=== PATIENT | female | born 1960 | race Caucasian/White ===

== ENCOUNTER 2016-07-05 16:34 | Inpatient (IN) | payer OTHER, MEDICARE ==
[~2016-07-05] VITALS: Ht 172.7 cm; Wt 150.0 kg
[2016-07-05 16:36] VITALS: BP 164/89; PULSE 90; RESP 24; TEMP 99.4; O2SAT 94
[2016-07-05] MEDS ORDERED: PERC10TA27 PO (18:48)
[2016-07-05] MEDS ORDERED: LORA-474 PO (18:48)
[2016-07-05] MEDS ORDERED: GABA100C4 PO (18:48)
--- NOTE | 2016-07-05 19:09 | PD ---
HPI Chief Complaint: Skin Problem Time Seen by Provider: 19:08 Travel History International Travel<30 days: No Contact w/Intl Traveler<30days: No Traveled to known affect area: No History of Present Illness HPI 56-year-old female into the emergency room with history of redness of her skin on her lower abdominal area, pelvic area and going down to the thighs. Patient says that she has had this for a few weeks but it had started to clear out and now it is coming back again since past 2-3 days. She's been having fever with chills. She was in [facility] emergency room yesterday where she was given a dose of antibiotic and was discharged. However patient says that the redness is spreading and there is a foul odor to it. It has been tender to touch. She is not a diabetic. However, she is morbidly obese. Vital signs are stable. Patient said her temperature at home was 101.5. PFSH Past Medical History Narrative Medical List of her past medical history as reviewed from the nursing note. Cancer: Yes (THYROID CANCER) Medical other: Yes (FILTERS IN CHEST, RT LEG DVT, LYMPHEDEMA) Neurologic: Yes (TRIGEMINAL NEUROLGIA) ?: Not Menopausal: Yes Past Surgical History Cholecystectomy: Yes Hysterectomy: Yes Other Surgery: Yes (CRAINOTOMY) Social History Alcohol Use: No Tobacco Use: Yes (1/2PPD) Substance Use: No Allergies-Medications (Allergen,Severity, Reaction): Coded Allergies: Morphine (Verified Allergy, Severe, Irritability/Anxiety, 07/05/16) Comments List of her allergies reviewed from the nursing note. Reported Meds & Prescriptions Reported Meds & Active Scripts Active Reported Percocet (Oxycodone-Acetaminophen) 10-325 mg Tab 1 Tab PO Q4H PRN Gabapentin 100 Mg Cap 200 Mg PO TID Ativan (Lorazepam) 1 Mg Tab 1 Mg PO Q8H PRN Narrative Medication List of her home medications reviewed from the nursing note. Review of Systems Except as stated in HPI: all other systems reviewed are Neg Physical Exam Narrative GENERAL: Awake, alert, morbidly obese, moderate distress SKIN: Warm and dry. Anterior abdominal wall at the lower half and into the skin fold going to the pelvic area and groin and upper third of the thigh has intensely red skin that is warm to touch and foul odor. It is tender to touch as well. No crepitus felt. HEAD: Atraumatic. Normocephalic. EYES: Pupils equal and round. No scleral icterus. No injection or drainage. ENT: No nasal bleeding or discharge. Mucous membranes pink and moist. NECK: Trachea midline. No JVD. CARDIOVASCULAR: Regular rate and rhythm. No murmur appreciated. RESPIRATORY: No accessory muscle use. Clear to auscultation. Breath sounds equal bilaterally. GASTROINTESTINAL: Abdomen soft, non-tender, nondistended. Hepatic and splenic margins not palpable. MUSCULOSKELETAL: No obvious deformities. No clubbing. No cyanosis. No edema. NEUROLOGICAL: Awake and alert. No obvious cranial nerve deficits. Motor grossly within normal limits. Normal speech. PSYCHIATRIC: Appropriate mood and affect; insight and judgment normal. Data Data Last Documented VS Vital Signs Date Time Temp Pulse Resp B/P Pulse Ox O2 Delivery O2 Flow Rate FiO2 07/05/16 22:00 98.8 88 18 149/74 98 Room Air Orders Complete Blood Count With Diff (07/05/16 19:45) Comprehensive Metabolic Panel (07/05/16 19:45) Lactic Acid Sepsis Protocol (07/05/16 19:45) Urinalysis - C+S If Indicated (07/05/16 19:45) Blood Culture (07/05/16 19:45) Blood Glucose (07/05/16 19:45) Ecg Monitoring (07/05/16 19:45) Iv Access Insert/Monitor (07/05/16 19:45) Oximetry (07/05/16 19:45) Oxygen Administration (07/05/16 19:45) Vancomycin Inj (Vancomycin Inj) (07/05/16 19:45) Piperacil-Tazo 4.5 Gm Premix (Zosyn 4.5 (07/05/16 19:45) Acetamin-Hydrocod 325-5 Mg (Morris 5-325 (07/05/16 20:15) Potassium Chloride Eff (K-Lyte Cl Eff) (07/05/16 22:30) Vancomycin Consult Pharmacy (Vancomycin (07/05/16 22:45) Cefepime Inj (Maxipime Inj) (07/06/16 09:00) Fluconazole 200 Mg Premix Bag (Diflucan (07/05/16 22:45) Admit To Inpatient (07/05/16 ) Vital Signs (Adult) Q4H (07/05/16 22:35) Activity Oob With Assistance (07/05/16 22:35) Stretcher Leveler Operator Helper / Telemetry .CONTINUOUS (07/05/16 22:35) Diet Regular Basic (07/06/16 Breakfast) Sodium Chloride 0.9% Flush (Ns Flush) (07/05/16 22:45) Sodium Chloride 0.9% Flush (Ns Flush) (07/06/16 09:00) Ondansetron Inj (Zofran Inj) (07/05/16 22:45) Bisacodyl Supp (Dulcolax Supp) (07/05/16 22:45) Admit Order (Ed Use Only) (07/05/16 22:38) Comprehensive Metabolic Panel (07/06/16 06:00) Complete Blood Count With Diff (07/06/16 06:00) Consult Wound / Ostomy Nurse (07/05/16 22:35) Acetaminophen (Tylenol) (07/05/16 22:45) Acetamin-Hydrocod 325-5 Mg (Morris 5-325 (07/05/16 22:45) Acetamin-Hydrocod 325-10 Mg (Morris 10-32 (07/05/16 22:45) Inpatient Certification (07/05/16 ) Gabapentin (Neurontin) (07/06/16 09:00) Lorazepam (Ativan) (07/05/16 22:45) Labs Laboratory Tests Test 07/05/16 07/05/16 19:45 19:52 White Blood Count 11.7 TH/MM3 Red Blood Count 4.54 MIL/MM3 Hemoglobin 11.4 GM/DL Hematocrit 35.8 % Mean Corpuscular Volume 78.9 FL Mean Corpuscular Hemoglobin 25.1 PG Mean Corpuscular Hemoglobin 31.9 % Concent Red Cell Distribution Width 17.7 % Platelet Count 283 TH/MM3 Mean Platelet Volume 8.5 FL Neutrophils (%) (Auto) 70.5 % Lymphocytes (%) (Auto) 18.7 % Monocytes (%) (Auto) 9.4 % Eosinophils (%) (Auto) 1.1 % Basophils (%) (Auto) 0.3 % Neutrophils # (Auto) 8.2 TH/MM3 Lymphocytes # (Auto) 2.2 TH/MM3 Monocytes # (Auto) 1.1 TH/MM3 Eosinophils # (Auto) 0.1 TH/MM3 Basophils # (Auto) 0.0 TH/MM3 CBC Comment DIFF FINAL Differential Comment Sodium Level 142 MEQ/L Potassium Level 3.2 MEQ/L Chloride Level 106 MEQ/L Carbon Dioxide Level 27.3 MEQ/L Anion Gap 9 MEQ/L Blood Urea Nitrogen 9 MG/DL Creatinine 0.80 MG/DL Estimat Glomerular Filtration 74 ML/MIN Rate Random Glucose 82 MG/DL Calcium Level 8.5 MG/DL Total Bilirubin 0.4 MG/DL Aspartate Amino Transf 12 U/L (AST/SGOT) Alanine Aminotransferase 15 U/L (ALT/SGPT) Alkaline Phosphatase 93 U/L Total Protein 7.9 GM/DL Albumin 3.1 GM/DL Lactic Acid Level 1.2 mmol/L MDM Medical Decision Making Medical Screen Exam Complete: Yes Emergency Medical Condition: Yes Medical Record Reviewed: Yes Differential Diagnosis Cellulitis, sepsis Narrative Course 10:27 PM all the blood test results are back. Patient does have some elevated WBC with left shift. Lactic acid is within normal limits. Her temperature went up to 100.3 in the ER. Patient was started on IV vancomycin. She will require admission for few more doses of IV antibiotic and the infection to clear up. Awaiting for the hospitalist to call back. Procedures EKG Prior to Arrival: No Sepsis Criteria Sepsis Criteria (SIRS+source): Infect source susp/known Diagnosis Primary Impression: Fever Qualified Code: R50.9 - Fever, unspecified fever cause Additional Impressions: Cellulitis Qualified Code: L03.311 - Cellulitis of abdominal wall SIRS (systemic inflammatory response syndrome) Admitting Information Admitting Physician Requests: Admit Zaida Mcdonough MD Jul 05, 2016 19:09 Admitting Physician Requests: Zaida Mayo MD Jul 05, 2016 19:09
[2016-07-05] MEDS ORDERED: VANCOMYCIN INJ 1,500 MG in SODIUM CHLORID 0.9% 500 ML INJ 500 ML IV ONE (19:45)
[2016-07-05] MEDS ORDERED: PIPERACIL-TAZO 4.5 GM PREMIX 100 ML IV ONE (19:45)
[2016-07-05 20:09] VITALS: BP 140/65; PULSE 81; RESP 18; TEMP 100.3; O2SAT 98
[2016-07-05 20:11] VITALS: RESP 18; O2SAT 98
[2016-07-05] MEDS ORDERED: ACETAMINOPHEN/HYDROcodone 325 MG/5 MG TAB PO ONE (20:15)
[2016-07-05 20:44] LABS: AUTOMATED NEUTROPHIL # 8.2 TH/MM3 (1.8-7.7); BASOPHIL % 0.3 % (0.0-2.0); EOSINOPHIL # 0.1 TH/MM3 (0-0.4); EOSINOPHIL % 1.1 % (0.0-4.0); HEMATOCRIT 35.8 % (35.0-46.0); HEMO FLAGS DIFF FINAL; LYMPH % 18.7 % (9.0-44.0); LYMPHOCYTE # 2.2 TH/MM3 (1.0-4.8); MEAN CELL VOLUME 78.9 FL (80.0-100.0); MEAN CORPUSCULAR HEMOGLOBIN 25.1 PG (27.0-34.0); MEAN CORPUSCULAR HGB CONC 31.9 % (32.0-36.0); MONO % 9.4 % (0.0-8.0); NEUT % 70.5 % (16.0-70.0); PLATELET COUNT 283 TH/MM3 (150-450); RED BLOOD COUNT 4.54 MIL/MM3 (4.00-5.30); RED CELL DISTRIBUTION WIDTH 17.7 % (11.6-17.2); WHITE BLOOD COUNT 11.7 TH/MM3 (4.0-11.0)
[2016-07-05 21:26] LABS: ANION GAP 9 MEQ/L (5-15); AST (GOT) 12 U/L (15-37); BICARBONATE 27.3 MEQ/L (21.0-32.0); BLOOD UREA NITROGEN 9 MG/DL (7-18); CHLORIDE 106 MEQ/L (98-107); GLOMERULAR FILTRATION RATE 74 ML/MIN (>89); POTASSIUM 3.2 MEQ/L (3.5-5.1); SODIUM (NA) 142 MEQ/L (136-145)
[2016-07-05 21:29] LABS: ALKALINE PHOSPHATASE 93 U/L (45-117); ALT (GPT) 15 U/L (10-53); TOTAL BILIRUBIN ADULT 0.4 MG/DL (0.2-1.0)
[2016-07-05 22:00] VITALS: BP 149/74; PULSE 88; RESP 18; TEMP 98.8; O2SAT 98
[2016-07-05] MEDS ORDERED: POTASSIUM CHLORIDE 25 MEQ EFFERVESCENT TAB PO ONE (22:30)
--- NOTE | 2016-07-05 22:38 | HHI.HP ---
HPI Service [facility] Primary Care Physician Non-Staff Admission Diagnosis cellulitis, SIRS Diagnoses: (1) SIRS (systemic inflammatory response syndrome) Diagnosis: Principal (2) Cellulitis Diagnosis: Principal (3) Hypokalemia Diagnosis: Principal (4) Morbid obesity with BMI of 50.0-59.9, adult Diagnosis: Principal (5) Anxiety Diagnosis: Principal Travel History International Travel<30 Days: No Contact w/Intl Traveler <30 Da: No Traveled to Known Affected Are: No History of Present Illness This is a 56-year-old female with a PMH of Trigeminal Neuralgia, Anxiety, Chronic Lymphedema, Morbid Obesity w/ BMI 50, GALA on CPAP and h/o DVT s/p IVC Filter who presented to the ER w/ complaints of diffuse abdominal skin infection. Per pt symptoms started "months" ago, has been using Triamcinolone cream and absorbent pads inside skin folds w/ significant improvement, however started to have worsening redness/pain approx 2-3 wks ago. Seen by PCP and referred to Safety Person who prescribed "some cream which only made it worse". In the meantime redness had spread to vaginal region and was told by Safety Person she would have to see Crystal Report Developer. Had appt w/ Crystal Report Developer for this week but doctor's office cancelled appt due to in family. Presented to [facility] yesterday for similar complaints and states "they just blew me off", states she was given antibiotic and was discharged home. Today, reports fever at home of 101.5 and worsening pain, at which time she came to the ER. On arrival, BP 1 6449, HR 90, O2 sat 94% on RA, Temp 100.3. WBC 11.7. Chemistry essentially unremarkable except for K+ 3.2. Lactic Acid 1.2. S/p Blood Cultures, Vanc/Zosyn in ER. Review of Systems Other ROS: 14 point review of systems otherwise negative. Past Family Social History Past Medical History PMH: Trigeminal Neuralgia, Anxiety, Chronic Lymphedema, Morbid Obesity w/ BMI 50, GALA on CPAP and h/o DVT s/p IVC Filter Past Surgical History PAST SURGICAL HISTORY: Cholecystectomy, Hysterectomy, Craniotomy Allergies: Coded Allergies: Morphine (Verified Allergy, Severe, Irritability/Anxiety, 07/05/16) Family History PAST FAMILY HISTORY: Reviewed. No h/o DM or CAD Social History PAST SOCIAL HISTORY: Negative for alcohol or drugs. Smokes 1/2ppd. Physical Exam Vital Signs Vital Signs Date Time Temp Pulse Resp B/P Pulse Ox O2 Delivery O2 Flow Rate FiO2 07/05/16 20:11 18 98 Room Air 07/05/16 20:09 100.3 81 18 140/65 98 Room Air 07/05/16 18:37 84 18 07/05/16 16:36 99.4 90 24 164/89 94 Room Air Physical Exam PE: GENERAL: Middle-aged morbidly obese white female in no acute distress, sitting up in bed. HEENT: PERRLA, EOMI. No scleral icterus or conjunctival pallor. No lid lag or facial droop. CARDIOVASCULAR: Regular rate and rhythm. No obvious murmurs to auscultation. No chest tenderness to palpation. RESPIRATORY: No obvious rhonchi or wheezing. Clear to auscultation. Breath sounds equal bilaterally. GASTROINTESTINAL: Abdomen obese, soft, abdomen w/ significant induration, beefy red skin, warm to touch, +tenderness, foul-smelling MUSCULOSKELETAL: Extremities without clubbing, cyanosis. Chronic lymphedema. No obvious deformities. NEUROLOGICAL: Awake, alert and oriented x4. No focal neurologic deficits. Moving both upper and lower extremities spontaneously. Laboratory Laboratory Tests Test 07/05/16 07/05/16 19:45 19:52 White Blood Count 11.7 Red Blood Count 4.54 Hemoglobin 11.4 Hematocrit 35.8 Mean Corpuscular Volume 78.9 Mean Corpuscular Hemoglobin 25.1 Mean Corpuscular Hemoglobin 31.9 Concent Red Cell Distribution Width 17.7 Platelet Count 283 Mean Platelet Volume 8.5 Neutrophils (%) (Auto) 70.5 Lymphocytes (%) (Auto) 18.7 Monocytes (%) (Auto) 9.4 Eosinophils (%) (Auto) 1.1 Basophils (%) (Auto) 0.3 Neutrophils # (Auto) 8.2 Lymphocytes # (Auto) 2.2 Monocytes # (Auto) 1.1 Eosinophils # (Auto) 0.1 Basophils # (Auto) 0.0 CBC Comment DIFF FINAL Differential Comment Sodium Level 142 Potassium Level 3.2 Chloride Level 106 Carbon Dioxide Level 27.3 Anion Gap 9 Blood Urea Nitrogen 9 Creatinine 0.80 Estimat Glomerular Filtration 74 Rate Random Glucose 82 Calcium Level 8.5 Total Bilirubin 0.4 Aspartate Amino Transf 12 (AST/SGOT) Alanine Aminotransferase 15 (ALT/SGPT) Alkaline Phosphatase 93 Total Protein 7.9 Albumin 3.1 Lactic Acid Level 1.2 Date/Time Procedure Status Source Growth 07/05/16 19:50 Aerobic Blood Culture Received Blood Peripheral Pending 07/05/16 19:50 Anaerobic Blood Culture Received Blood Peripheral Pending Result Diagram: 07/05/16194407/05/161944 Assessment and Plan Problem List: (1) SIRS (systemic inflammatory response syndrome) ICD Code: R65.10 Status: Acute (2) Cellulitis ICD Code: L03.90 Status: Acute (3) Hypokalemia ICD Code: E87.6 Status: Acute (4) Morbid obesity with BMI of 50.0-59.9, adult ICD Code: E66.01 Status: Acute (5) Anxiety ICD Code: F41.9 Status: Acute Assessment and Plan A/P: 1. SIRS: Temp 100.3, 101.5 at home, HR 90, WBC 11.7, Lactic Acid normal. Source-diffuse abdominal [place] w/ superimposed bacterial infection. S/p Blood Cultures, Vanc/Zosyn in ER. Follow up cultures, continue IV Abx. 2. Cellulitis: Diffuse. [place] infection w/ superimposed bacterial infection , continue w/ IV Vanc/Zosyn, add Diflucan. Consult Wound Management for further recommendations. Pt prone to recurrent infections in light of morbid obesity and limited mobility as primarily wheelchair bound. 3. Hypokalemia: K+ 3.2 s/p replacement. Will recheck and replace as needed. 4. Morbid Obesity: BMI 50. 5. DVT Prophylaxis: Heparin sq 6. Social work for d/c planning as needed. 7. Case discussed w/ ER physician at length. Physician Certification 2 Midnight Certification Type: Admission for Inpatient Services Order for Inpatient Services The services are ordered in accordance with Medicare regulations or non- Medicare payer requirements, as applicable. In the case of services not specified as inpatient-only, they are appropriately provided as inpatient services in accordance with the 2-midnight benchmark. Estimated LOS (days): 2 days is the estimated time the patient will need to remain in the hospital, assuming treatment plan goals are met and no additional complications. Post-Hospital Plan: Not yet determined Problem Qualifiers (1) Cellulitis: Qualified Code: L03.311 - Cellulitis of abdominal wall Radha Oliveira MD Jul 05, 2016 22:38
[2016-07-05] MEDS ORDERED: ONDANSETRON HCL 4 MG/2 ML VIAL IVP PRN (22:45)
[2016-07-05] MEDS ORDERED: ACETAMINOPHEN 325 MG TAB PO PRN (22:45)
[2016-07-05] MEDS ORDERED: SODIUM CHLORIDE 0.9% FLUSH 5 ML FLUSH FLUSH PRN (22:45)
[2016-07-05] MEDS ORDERED: BISACODYL 10 MG SUPP PR PRN (22:45)
[2016-07-05] MEDS ORDERED: FLUCONAZOLE 200 MG PREMIX BAG 100 ML IV ONE (22:45)
[2016-07-05] MEDS ORDERED: ACETAMINOPHEN/HYDROcodone 325 MG/5 MG TAB PO PRN (22:45)
[2016-07-05] MEDS ORDERED: Vancomycin Consult Pharmacy 1 EA OTHER SCH (22:45)
[2016-07-06] VITALS (8 sets, daily range): BP systolic 135–160; BP diastolic 68–78; PULSE 72–86; RESP 18–20; TEMP 98–99.3; O2SAT 95–97
[2016-07-06] MEDS ORDERED: VANCOMYCIN 1,000 MG/NS 250 ML IV SCH ×2
[2016-07-06] MEDS ORDERED: GABAPENTIN 100 MG CAP PO ONE (00:15)
[2016-07-06] MEDS: LORazepam 1 MG TAB PO PRN (04:07)
[2016-07-06 04:25] LABS: AUTOMATED NEUTROPHIL # 6.7 TH/MM3 (1.8-7.7); BASOPHIL % 0.4 % (0.0-2.0); EOSINOPHIL # 0.1 TH/MM3 (0-0.4); EOSINOPHIL % 1.6 % (0.0-4.0); HEMATOCRIT 33.8 % (35.0-46.0); HEMO FLAGS DIFF FINAL; LYMPH % 19.3 % (9.0-44.0); LYMPHOCYTE # 1.9 TH/MM3 (1.0-4.8); MEAN CELL VOLUME 78.7 FL (80.0-100.0); MEAN CORPUSCULAR HEMOGLOBIN 25.7 PG (27.0-34.0); MEAN CORPUSCULAR HGB CONC 32.6 % (32.0-36.0); MONO % 8.5 % (0.0-8.0); NEUT % 70.2 % (16.0-70.0); PLATELET COUNT 264 TH/MM3 (150-450); RED BLOOD COUNT 4.29 MIL/MM3 (4.00-5.30); RED CELL DISTRIBUTION WIDTH 17.2 % (11.6-17.2); WHITE BLOOD COUNT 9.6 TH/MM3 (4.0-11.0)
[2016-07-06 04:36] LABS: ANION GAP 8 MEQ/L (5-15); AST (GOT) 15 U/L (15-37); BICARBONATE 25.2 MEQ/L (21.0-32.0); BLOOD UREA NITROGEN 9 MG/DL (7-18); CHLORIDE 110 MEQ/L (98-107); GLOMERULAR FILTRATION RATE 79 ML/MIN (>89); POTASSIUM 3.3 MEQ/L (3.5-5.1); SODIUM (NA) 143 MEQ/L (136-145)
[2016-07-06 04:39] LABS: ALKALINE PHOSPHATASE 82 U/L (45-117); ALT (GPT) 15 U/L (10-53); TOTAL BILIRUBIN ADULT 0.5 MG/DL (0.2-1.0)
[2016-07-06] MEDS: ACETAMINOPHEN/HYDROcodone 325 MG/10 MG TAB PO PRN ×4 (07:29→21:18)
[2016-07-06] MEDS: SODIUM CHLORIDE 0.9% FLUSH 5 ML FLUSH FLUSH SCH ×2 (09:00→21:19)
[2016-07-06] MEDS: GABAPENTIN 100 MG CAP PO SCH ×3 (09:33→18:23)
[2016-07-06] MEDS: HEPARIN SODIUM - SQ 10,000 UNITS/ML VIAL SQ SCH ×2 (09:33→21:19)
[2016-07-06] MEDS: CEFEPIME INJ 1,000 MG in SODIUM CHLORIDE 0.9% INJ 100 ML IV SCH ×2 (09:34→21:19)
--- NOTE | 2016-07-06 10:27 | HHI.PR ---
Subjective Remarks The patient says she has been dealing with these infections for the past 6 months. She said they entirely went away about 3 months ago after she had a course of antibiotics and antifungals but the infection did reappear. She said she is generally in a wheelchair. She says she has been trying to achieve weight loss. Discussed with nursing. Objective Vitals Vital Signs Date Time Temp Pulse Resp B/P Pulse Ox O2 Delivery O2 Flow Rate FiO2 07/06/16 08:54 99.2 72 18 160/75 95 07/06/16 05:00 81 18 135/68 95 Room Air 07/06/16 01:00 86 18 144/71 97 Room Air 07/05/16 22:00 98.8 88 18 149/74 98 Room Air 07/05/16 20:11 18 98 Room Air 07/05/16 20:09 100.3 81 18 140/65 98 Room Air 07/05/16 18:37 84 18 07/05/16 16:36 99.4 90 24 164/89 94 Room Air Result Diagram: 07/06/16 0340 07/06/16 0340 Objective Remarks GENERAL: Morbidly obese female in no acute distress. HEENT: PERRLA, EOMI. No scleral icterus or conjunctival pallor. No lid lag or facial droop. CARDIOVASCULAR: Regular rate and rhythm. No obvious murmurs to auscultation. No chest tenderness to palpation. RESPIRATORY: No obvious rhonchi or wheezing. Clear to auscultation. Breath sounds equal bilaterally. GASTROINTESTINAL: Abdomen obese, soft. Lower abdomen and groin w/ significant induration, erythema, +tenderness, foul-smelling. MUSCULOSKELETAL: Extremities without clubbing, cyanosis. Chronic lymphedema, worse on right leg. No obvious deformities. NEUROLOGICAL: Awake, alert and oriented x4. No focal neurologic deficits. Moving both upper and lower extremities spontaneously. PSYCH: Mood and affect appropriate. Medications and IVs Current Medications Medications (Trade) Dose Ordered Sig/Sanchez Route Start Time Stop Time Status Last Admin Pharmacy Profile Note 0 ml @ 0 mls/hr UNSCH OTHER 07/05/16 22:45 (Maxipime Inj/NS Inj) 100 ml @ 200 mls/hr Q12H IV 07/06/16 09:00 07/06/16 09:34 (NS Flush) 2 ml UNSCH PRN FLUSH 07/05/16 22:45 (NS Flush) 2 ml BID FLUSH 07/06/16 09:00 07/06/16 09:00 (Zofran Inj) 4 mg Q6H PRN IVP 07/05/16 22:45 (Dulcolax Supp) [address] 07/05/16 22:45 (Tylenol) 650 mg Q6H PRN PO 07/05/16 22:45 ([place] 5-325 Mg) 1 tab Q4H PRN PO 07/05/16 22:45 07/06/16 04:08 ([place] 10-325 Mg) 1 tab Q4H PRN PO 07/05/16 22:45 07/06/16 07:29 (Neurontin) 200 mg TID PO 07/06/16 09:00 07/06/16 09:33 Lorazepam 1 mg 1 mg Q8H PRN PO 07/05/16 22:45 07/06/16 04:07 (Diflucan 100 Mg Premix Bag) 50 ml @ 50 mls/hr Q24H IV 07/06/16 21:00 Heparin Sodium (Porcine) 5000 units 5,000 units Q12HR SQ 07/06/16 09:00 07/06/16 09:33 (Vancomycin Inj/ NS 500 ml Inj) 517.5 ml @ 258.75 mls/ hr Q12H IV 07/06/16 12:00 Miscellaneous Information SPECIFIC LAB TO BE TOLU... ONCE ONCE XX 07/07/16 11:45 07/07/16 11:46 (Colace) 100 mg BID PO 07/06/16 11:00 (Senokot) 17.2 mg DAILY PO 07/07/16 09:00 (Vasotec Inj) 1.25 mg Q6H PRN IV PUSH 07/06/16 10:30 (Dilaudid Pf Inj) 0.5 mg Q4H PRN IV PUSH 07/06/16 11:00 UNV A/P Problem List: (1) SIRS (systemic inflammatory response syndrome) ICD Code: R65.10 Status: Acute (2) Cellulitis ICD Code: L03.90 Status: Acute (3) Hypokalemia ICD Code: E87.6 Status: Acute (4) Morbid obesity with BMI of 50.0-59.9, adult ICD Code: E66.01 Status: Acute (5) Anxiety ICD Code: F41.9 Status: Acute Assessment and Plan SIRS/ Cellulitis/ hidradenitis supparativa Diffuse abdominal sylvain w/ superimposed bacterial infection. Consistent with hidradenitis supparativa. S/p Blood Cultures, Vanc/Zosyn in ER. Pt prone to recurrent infections in light of morbid obesity and limited mobility as primarily wheelchair bound. - Follow up cultures. And wound bacterial and fungal cultures. - continue IV Abx and Diflucan. - Consult wound management for further recommendations. - pain control with a bowel regimen. Hypokalemia K+ 3.2 on admission. - Will recheck and replace as needed. Morbid Obesity BMI 50. - inspector elevators consult requested. - weight loss will assist with preventing recurrent infections. HTN Blood pressure likely exacerbated by pain. - Pain control. - Vasotec as needed. DVT Prophylaxis: Heparin sq Discharge Planning Awaiting clinical improvement. Problem Qualifiers (1) Cellulitis: Qualified Code: L03.311 - Cellulitis of abdominal wall Mario Alberto Oliveira DO Jul 06, 2016 10:27
[2016-07-06] MEDS ORDERED: ENALAPRILAT 1.25 MG/ML VIAL IV PUSH PRN (10:30)
[2016-07-06] MEDS ORDERED: POTASSIUM CHLORIDE 25 MEQ EFFERVESCENT TAB PO ONE (10:30)
[2016-07-06] MEDS: DOCUSATE SODIUM 100 MG CAP PO SCH ×2 (11:00→21:00)
[2016-07-06] MEDS: VANCOMYCIN INJ 1,750 MG in SODIUM CHLORID 0.9% 500 ML INJ 500 ML IV SCH (13:28)
[2016-07-06] MEDS: HYDROmorphone HCL PF 1 MG/ML VIAL IV PUSH PRN ×3 (13:28→23:03)
[2016-07-06] MEDS: FLUCONAZOLE 100 MG PREMIX BAG 50 ML IV SCH (22:06)
[2016-07-07] VITALS (9 sets, daily range): BP systolic 112–179; BP diastolic 59–85; PULSE 65–82; RESP 18–20; TEMP 98–99.7; O2SAT 94–98
[2016-07-07] MEDS: VANCOMYCIN INJ 1,750 MG in SODIUM CHLORID 0.9% 500 ML INJ 500 ML IV SCH ×2 (01:08→12:30)
[2016-07-07] MEDS: HYDROmorphone HCL PF 1 MG/ML VIAL IV PUSH PRN ×4 (02:57→23:06)
[2016-07-07] MEDS: LORazepam 1 MG TAB PO PRN (04:23)
[2016-07-07] MEDS: ACETAMINOPHEN/HYDROcodone 325 MG/10 MG TAB PO PRN ×4 (05:34→21:39)
[2016-07-07 05:36] LABS: BICARBONATE 25.7 MEQ/L (21.0-32.0); MAGNESIUM 2.3 MG/DL (1.5-2.5); POTASSIUM 3.6 MEQ/L (3.5-5.1)
[2016-07-07] MEDS ORDERED: POTASSIUM CHLORIDE 25 MEQ EFFERVESCENT TAB PO ONE (08:00)
[2016-07-07] MEDS: SODIUM CHLORIDE 0.9% FLUSH 5 ML FLUSH FLUSH SCH ×2 (08:38→21:38)
[2016-07-07] MEDS: CEFEPIME INJ 1,000 MG in SODIUM CHLORIDE 0.9% INJ 100 ML IV SCH ×2 (08:39→21:37)
[2016-07-07] MEDS: HEPARIN SODIUM - SQ 10,000 UNITS/ML VIAL SQ SCH ×2 (08:39→23:05)
[2016-07-07] MEDS: GABAPENTIN 100 MG CAP PO SCH ×3 (08:39→16:23)
[2016-07-07] MEDS: SENNOSIDES 8.6 MG TAB PO SCH (08:40)
[2016-07-07] MEDS: DOCUSATE SODIUM 100 MG CAP PO SCH ×2 (08:40→21:00)
[2016-07-07] MEDS ORDERED: PHARMACY ORDERED LAB XX ONE (11:45)
--- NOTE | 2016-07-07 15:00 | HHI.PR ---
Subjective Remarks The patient says she has a lot of pain in her lower abdominal area. She said she wished the pain medications would come on time. The patient's daughter was on the phone and I discussed the patient's condition with her. The patient was hoping to go home soon. Objective Vitals Vital Signs Date Time Temp Pulse Resp B/P Pulse Ox O2 Delivery O2 Flow Rate FiO2 07/07/16 12:46 14 07/07/16 11:33 99.0 74 20 142/65 94 07/07/16 09:10 96 21 07/07/16 08:30 67 07/07/16 07:33 98.1 76 18 112/59 94 07/07/16 04:14 98.3 65 20 163/76 98 07/07/16 00:27 98.0 68 20 140/75 96 07/06/16 20:19 96 07/06/16 20:00 83 07/06/16 19:16 98.0 80 20 135/69 96 07/06/16 15:24 99.2 73 20 135/70 97 I/O 07/06/16 07/06/16 07/06/16 07/07/16 07/07/16 07/07/16 07:00 15:00 23:00 07:00 15:00 23:00 Intake Total 600 ml Balance 600 ml Intake IV Total 600 ml # Voids 1 Result Diagram: 07/06/16 0340 07/07/16 0503 Objective Remarks GENERAL: Morbidly obese female in no acute distress. HEENT: PERRLA, EOMI. No scleral icterus or conjunctival pallor. No lid lag or facial droop. CARDIOVASCULAR: Regular rate and rhythm. No obvious murmurs to auscultation. No chest tenderness to palpation. RESPIRATORY: No obvious rhonchi or wheezing. Clear to auscultation. Breath sounds equal bilaterally. GASTROINTESTINAL: Abdomen obese, soft. Lower abdomen and groin w/ significant induration, erythema, +tenderness, foul-smelling. MUSCULOSKELETAL: Extremities without clubbing, cyanosis. Chronic lymphedema, worse on right leg. No obvious deformities. NEUROLOGICAL: Awake, alert and oriented x4. No focal neurologic deficits. Moving both upper and lower extremities spontaneously. PSYCH: Mood and affect appropriate. Medications and IVs Current Medications Medications (Trade) Dose Ordered Sig/Sanchez Route Start Time Stop Time Status Last Admin Pharmacy Profile Note 0 ml @ 0 mls/hr UNSCH OTHER 07/05/16 22:45 (Maxipime Inj/NS Inj) 100 ml @ 200 mls/hr Q12H IV 07/06/16 09:00 07/07/16 08:39 (NS Flush) 2 ml UNSCH PRN FLUSH 07/05/16 22:45 (NS Flush) 2 ml BID FLUSH 07/06/16 09:00 07/07/16 08:38 (Zofran Inj) 4 mg Q6H PRN IVP 07/05/16 22:45 (Dulcolax Supp) 10 mg DAILY PRN OR 07/05/16 22:45 (Tylenol) 650 mg Q6H PRN PO 07/05/16 22:45 ([place] 5-325 Mg) 1 tab Q4H PRN PO 07/05/16 22:45 07/06/16 04:08 ([place] 10-325 Mg) 1 tab Q4H PRN PO 07/05/16 22:45 07/07/16 10:48 (Neurontin) 200 mg TID PO 07/06/16 09:00 07/07/16 13:00 Lorazepam 1 mg 1 mg Q8H PRN PO 07/05/16 22:45 07/07/16 04:23 (Diflucan 100 Mg Premix Bag) 50 ml @ 50 mls/hr Q24H IV 07/06/16 21:00 07/06/16 22:06 Heparin Sodium (Porcine) 5000 units 5,000 units Q12HR SQ 07/06/16 09:00 07/07/16 08:39 (Vancomycin Inj/ NS 500 ml Inj) 517.5 ml @ 258.75 mls/ hr Q12H IV 07/06/16 12:00 07/07/16 12:30 (Colace) 100 mg BID PO 07/06/16 11:00 (Senokot) 17.2 mg DAILY PO 07/07/16 09:00 (Vasotec Inj) 1.25 mg Q6H PRN IV PUSH 07/06/16 10:30 (Dilaudid Pf Inj) 0.5 mg Q4H PRN IV PUSH 07/06/16 11:00 07/07/16 07:24 A/P Problem List: (1) SIRS (systemic inflammatory response syndrome) ICD Code: R65.10 Status: Acute (2) Cellulitis ICD Code: L03.90 Status: Acute (3) Hypokalemia ICD Code: E87.6 Status: Acute (4) Morbid obesity with BMI of 50.0-59.9, adult ICD Code: E66.01 Status: Acute (5) Anxiety ICD Code: F41.9 Status: Acute Assessment and Plan SIRS/ Cellulitis/ hidradenitis supparativa Diffuse abdominal sylvain w/ superimposed bacterial infection. Consistent with hidradenitis supparativa. S/p Blood Cultures, Vanc/Zosyn in ER. Pt prone to recurrent infections in light of morbid obesity and limited mobility as primarily wheelchair bound. - Follow up cultures. Add wound bacterial and fungal cultures. Wound culture with normal skin adriana. Fungal culture still pending. - continue vancomycin, Zosyn and Diflucan. - Consult wound management for further recommendations. - pain control with a bowel regimen. - Recommend weight loss. Hypokalemia K+ 3.2 on admission. - Will recheck and replace as needed. KCl given 2/5. Morbid Obesity BMI 50. - billiard table mechanic consult requested. - weight loss will assist with preventing recurrent infections. HTN Blood pressure likely exacerbated by pain. - Pain control. - Vasotec as needed. DVT Prophylaxis: Heparin sq Discharge Planning Anticipate discharge home in 1-2 days. Problem Qualifiers (1) Cellulitis: Qualified Code: L03.311 - Cellulitis of abdominal wall Mario Alberto Oliveira DO Jul 07, 2016 14:59
[2016-07-07] MEDS: FLUCONAZOLE 100 MG PREMIX BAG 50 ML IV SCH (23:05)
[2016-07-08] MEDS: VANCOMYCIN INJ 1,750 MG in SODIUM CHLORID 0.9% 500 ML INJ 500 ML IV SCH ×2 (00:46→12:24)
[2016-07-08] MEDS: LORazepam 1 MG TAB PO PRN (00:50)
[2016-07-08 00:57] VITALS: BP 159/74; PULSE 64; RESP 21; TEMP 98.7; O2SAT 98
[2016-07-08 03:31] VITALS: BP 168/79; PULSE 66; RESP 21; TEMP 98.7; O2SAT 98
[2016-07-08] MEDS: HYDROmorphone HCL PF 1 MG/ML VIAL IV PUSH PRN ×2 (04:25→13:05)
[2016-07-08 07:15] VITALS: PULSE 69
[2016-07-08] MEDS: DOCUSATE SODIUM 100 MG CAP PO SCH (09:00)
[2016-07-08] MEDS: SENNOSIDES 8.6 MG TAB PO SCH (09:00)
[2016-07-08] MEDS: SODIUM CHLORIDE 0.9% FLUSH 5 ML FLUSH FLUSH SCH (09:31)
[2016-07-08] MEDS: CEFEPIME INJ 1,000 MG in SODIUM CHLORIDE 0.9% INJ 100 ML IV SCH (09:31)
[2016-07-08] MEDS: GABAPENTIN 100 MG CAP PO SCH ×3 (09:32→17:42)
[2016-07-08] MEDS: HEPARIN SODIUM - SQ 10,000 UNITS/ML VIAL SQ SCH (09:33)
[2016-07-08] MEDS: ACETAMINOPHEN/HYDROcodone 325 MG/10 MG TAB PO PRN ×2 (09:36→17:43)
[2016-07-08 11:26] VITALS: BP 170/58; PULSE 66; RESP 18; TEMP 99.5; O2SAT 98
--- NOTE | 2016-07-08 15:01 | HHI.PR ---
Subjective Remarks Follow up for cellulitis. The patient denies any fevers or chills overnight. She has lower abdominal pain at the site of the rash however she states it is improving as she can now sit on this area without significant discomfort. She had 1 episode of diarrhea today. Denies any nausea/vomiting. She has no other medical complaints at this time. She really wants to go home, she takes care of her elderly mother. Objective Vitals Vital Signs Date Time Temp Pulse Resp B/P Pulse Ox O2 Delivery O2 Flow Rate FiO2 07/08/16 11:26 99.5 66 18 170/58 98 07/08/16 03:31 98.7 66 21 168/79 98 07/08/16 00:57 98.7 64 21 159/74 98 07/07/16 20:00 68 07/07/16 19:29 98.7 82 18 122/60 97 07/07/16 15:22 99.7 65 20 179/85 97 Result Diagram: 07/06/16 0340 07/07/16 0503 Imaging Objective Remarks GENERAL: Well-nourished, well-developed morbidly obese female patient in [facility]. SKIN: Warm and dry. No rash. HEAD: Normocephalic. Atraumatic. NECK: Supple. Trachea midline. CARDIOVASCULAR: Regular rate and rhythm. S1, S2 noted. No murmur appreciated. RESPIRATORY: No accessory muscle use. Clear to auscultation. Breath sounds equal bilaterally. GASTROINTESTINAL: Abdomen soft, non-tender, nondistended. Normoactive bowel sounds x4. Lower abdomen and groin w/ significant induration, mild erythema, + tenderness, foul-smelling. MUSCULOSKELETAL: No obvious deformities. Extremities without clubbing, cyanosis , or edema. NEUROLOGICAL: Awake and alert. No obvious cranial nerve deficits. Motor grossly within normal limits. Normal speech. PSYCHIATRIC: Appropriate mood and affect; insight and judgment normal. Medications and IVs Current Medications Medications (Trade) Dose Ordered Sig/Sanchez Route Start Time Stop Time Status Last Admin Pharmacy Profile Note 0 ml @ 0 mls/hr UNSCH OTHER 07/05/16 22:45 (Maxipime Inj/NS Inj) 100 ml @ 200 mls/hr Q12H IV 07/06/16 09:00 07/08/16 09:31 (NS Flush) 2 ml UNSCH PRN FLUSH 07/05/16 22:45 07/08/16 13:05 (NS Flush) 2 ml BID FLUSH 07/06/16 09:00 07/08/16 09:31 (Zofran Inj) 4 mg Q6H PRN IVP 07/05/16 22:45 (Dulcolax Supp) 10 mg DAILY PRN WV 07/05/16 22:45 (Tylenol) 650 mg Q6H PRN PO 07/05/16 22:45 (Warren 5-325 Mg) 1 tab Q4H PRN PO 07/05/16 22:45 07/06/16 04:08 (Warren 10-325 Mg) 1 tab Q4H PRN PO 07/05/16 22:45 07/08/16 09:36 (Neurontin) 200 mg TID PO 07/06/16 09:00 07/08/16 13:00 Lorazepam 1 mg 1 mg Q8H PRN PO 07/05/16 22:45 07/08/16 00:50 (Diflucan 100 Mg Premix Bag) 50 ml @ 50 mls/hr Q24H IV 07/06/16 21:00 07/07/16 23:05 Heparin Sodium (Porcine) 5000 units 5,000 units Q12HR SQ 07/06/16 09:00 07/08/16 09:33 (Vancomycin Inj/ NS 500 ml Inj) 517.5 ml @ 258.75 mls/ hr Q12H IV 07/06/16 12:00 07/08/16 12:24 (Colace) 100 mg BID PO 07/06/16 11:00 (Senokot) 17.2 mg DAILY PO 07/07/16 09:00 (Vasotec Inj) 1.25 mg Q6H PRN IV PUSH 07/06/16 10:30 (Dilaudid Pf Inj) 0.5 mg Q4H PRN IV PUSH 07/06/16 11:00 07/08/16 13:05 Urinary Catheter: No Vascular Central Line Catheter: No A/P Problem List: (1) SIRS (systemic inflammatory response syndrome) ICD Code: R65.10 Status: Acute (2) Cellulitis ICD Code: L03.90 Status: Acute (3) Hypokalemia ICD Code: E87.6 Status: Acute (4) Morbid obesity with BMI of 50.0-59.9, adult ICD Code: E66.01 Status: Acute (5) Anxiety ICD Code: F41.9 Status: Acute Assessment and Plan 56-year-old female with a PMH of Trigeminal Neuralgia, Anxiety, Chronic Lymphedema, Morbid Obesity w/ BMI 50, GALA on CPAP and h/o DVT s/p IVC Filter who presented to the ER w/ complaints of diffuse abdominal skin infection. SIRS/ Cellulitis/ hidradenitis suppurativa: Diffuse abdominal sylvain w/ superimposed bacterial infection. Consistent with hidradenitis supparativa. S/ p Blood Cultures, Vanc/Zosyn in ER. Pt prone to recurrent infections in light of morbid obesity and limited mobility as primarily wheelchair bound. - Blood cultures with NGTD x3days. - Wound culture with heavy growth of normal skin adriana, awaiting fungal culture - Leukocytosis initially with WBC 11.7K, now improved to 9.6K. Follow up cultures. - given IV vancomycin, cefepime however with negative wound cultures, will transition to po Bactrim at discharge. - given IV fluconazole, will give po diflucan at discharge. - Consult wound management, states wound looks fungal, recommends adding nystatin powder - pain control with a bowel regimen. - Recommend weight loss. - SIRS resolved, patient's wounds improving with above treatment, stable for discharge - will arrange [facility] RN for wound care Hypokalemia: K+ 3.2 on admission. - KCl given on 07/07, repeat K 3.6, resolved. Morbid Obesity: BMI 50. 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 HTN: Blood pressure likely exacerbated by pain. - Pain control. - Vasotec as needed. DVT Prophylaxis: Heparin sq Written by Angelique Munson, acting as scribe for Dr. Perez on 07/08/16 at 15:01. The documentation accurately reflects the work performed [id number] by me Dr. Perez on 07/08/16 at 15:01. Discharge Planning See discharge summary. Problem Qualifiers (1) Cellulitis: Qualified Code: L03.311 - Cellulitis of abdominal wall Angelique Munson PA-C Jul 08, 2016 15:01 Mary Perez MD Jul 09, 2016 17:41
--- NOTE | 2016-07-08 15:38 | HHI.FF ---
Face to Face Verification Diagnosis: (1) Hidradenitis suppurativa (2) Morbid obesity with BMI of 50.0-59.9, adult (3) Cellulitis (4) GALA (obstructive sleep apnea) (5) Anxiety Physical Therapy Order: Evaluate and Treat, Improve ambulation, Strength and gait training Home Health Nursing Order: Medical education Signs/symptoms of disease process Wound care and dressing changes (Apply nystatin powder to abdominal fold and bilateral groin. Apply warm compresses to any area with drainage. ) Nursing assessment with vital signs I have seen patient Anya Hall on 07/08/16. My clinical findings support the need for the requested home health care services because: Ltd mobility - disease progression Deconditioned w/ increased weakness Limited ability to care for self High risk of falls Infection w/ risk of complications I certify that my clinical findings support that this patient is homebound because: Unsteady gait/balance Unsafe to leave home unassisted Unable to use public transportation Angelique Munson PA-C Jul 08, 2016 15:38 Mary Perez MD Jul 09, 2016 17:41
[2016-07-08] MEDS ORDERED: BACT800T5 PO (15:41)
[2016-07-08] MEDS ORDERED: NYST10007 TOPICAL (15:41)
[2016-07-08] MEDS ORDERED: DIFL100T PO (15:41)
[2016-07-08] MEDS ORDERED: PERC10TA27 PO (15:43)
--- NOTE | 2016-07-08 17:08 | HHI.DS ---
cc: Dr. Sixto Mora Discharge Summary Admission Date Jul 05, 2016 at 22:42 Discharge Date: Jul 08, 2016 Admitting Diagnosis cellulitis, SIRS (1) Hidradenitis suppurativa ICD Code: L73.2 Diagnosis: Principal (2) Cellulitis ICD Code: L03.90 Diagnosis: Principal (3) SIRS (systemic inflammatory response syndrome) ICD Code: R65.10 Diagnosis: Principal (4) Hypokalemia ICD Code: E87.6 Diagnosis: Secondary (5) Morbid obesity with BMI of 50.0-59.9, adult ICD Code: E66.01 Diagnosis: Secondary (6) Anxiety ICD Code: F41.9 Diagnosis: Secondary Procedures None. Brief History - From Admission This is a 56-year-old female with a PMH of Trigeminal Neuralgia, Anxiety, Chronic Lymphedema, Morbid Obesity w/ BMI 50, GALA on CPAP and h/o DVT s/p IVC Filter who presented to the ER w/ complaints of diffuse abdominal skin infection. Per pt symptoms started "months" ago, has been using Triamcinolone cream and absorbent pads inside skin folds w/ significant improvement, however started to have worsening redness/pain approx 2-3 wks ago. Seen by PCP and referred to Sound Effects Supervisor who prescribed "some cream which only made it worse". In the meantime redness had spread to vaginal region and was told by Sound Effects Supervisor she would have to see Bulk Plant Operator. Had appt w/ Bulk Plant Operator for this week but doctor's office cancelled appt due to in family. Presented to [facility] yesterday for similar complaints and states "they just blew me off", states she was given antibiotic and was discharged home. Today, reports fever at home of 101.5 and worsening pain, at which time she came to the ER. On arrival, BP 1 6449, HR 90, O2 sat 94% on RA, Temp 100.3. WBC 11.7. Chemistry essentially unremarkable except for K+ 3.2. Lactic Acid 1.2. S/p Blood Cultures, Vanc/Zosyn in ER. CBC/BMP: 07/06/16 0340 07/07/16 0503 Significant Findings Laboratory Tests Test 07/05/16 07/06/16 07/07/16 07/07/16 19:45 03:40 05:03 12:08 White Blood Count 11.7 TH/MM3 (4.0-11.0) Hemoglobin 11.4 GM/DL 11.0 GM/DL (11.6-15.3) (11.6-15.3) Mean Corpuscular Volume 78.9 FL 78.7 FL (80.0-100.0) (80.0-100.0) Mean Corpuscular Hemoglobin 25.1 PG 25.7 PG (27.0-34.0) (27.0-34.0) Mean Corpuscular Hemoglobin 31.9 % Concent (32.0-36.0) Red Cell Distribution Width 17.7 % (11.6-17.2) Neutrophils (%) (Auto) 70.5 % 70.2 % (16.0-70.0) (16.0-70.0) Monocytes (%) (Auto) 9.4 % (0.0-8.0) 8.5 % (0.0-8.0) Neutrophils # (Auto) 8.2 TH/MM3 (1.8-7.7) Monocytes # (Auto) 1.1 TH/MM3 (0-0.9) Potassium Level 3.2 MEQ/L 3.3 MEQ/L (3.5-5.1) (3.5-5.1) Estimat Glomerular Filtration 74 ML/MIN (>89) 79 ML/MIN (>89) 75 ML/MIN (>89) Rate Aspartate Amino Transf 12 U/L (15-37) (AST/SGOT) Albumin 3.1 GM/DL 2.7 GM/DL (3.4-5.0) (3.4-5.0) Hematocrit 33.8 % (35.0-46.0) Chloride Level 110 MEQ/L 109 MEQ/L (98-107) (98-107) Calcium Level 8.2 MG/DL (8.5-10.1) Vancomycin Level Trough 12.2 MCG/ML (5.0-10.0) PE at Discharge GENERAL: Well-nourished, well-developed morbidly obese female patient in [facility]. SKIN: Warm and dry. No rash. HEAD: Normocephalic. Atraumatic. NECK: Supple. Trachea midline. CARDIOVASCULAR: Regular rate and rhythm. S1, S2 noted. No murmur appreciated. RESPIRATORY: No accessory muscle use. Clear to auscultation. Breath sounds equal bilaterally. GASTROINTESTINAL: Abdomen soft, non-tender, nondistended. Normoactive bowel sounds x4. Lower abdomen and groin w/ significant induration, mild erythema, + tenderness, foul-smelling. MUSCULOSKELETAL: No obvious deformities. Extremities without clubbing, cyanosis , or edema. NEUROLOGICAL: Awake and alert. No obvious cranial nerve deficits. Motor grossly within normal limits. Normal speech. PSYCHIATRIC: Appropriate mood and affect; insight and judgment normal. Hospital Course 56-year-old female with a PMH of Trigeminal Neuralgia, Anxiety, Chronic Lymphedema, Morbid Obesity w/ BMI 50, GALA on CPAP and h/o DVT s/p IVC Filter who presented to the ER w/ complaints of diffuse abdominal skin infection. SIRS/ Cellulitis/ hidradenitis suppurativa: Diffuse abdominal sylvain w/ superimposed bacterial infection. Consistent with hidradenitis supparativa. S/ p Blood Cultures, Vanc/Zosyn in ER. Pt prone to recurrent infections in light of morbid obesity and limited mobility as primarily wheelchair bound. - Blood cultures with NGTD x3days. - Wound culture with heavy growth of normal skin adriana, awaiting fungal culture - Leukocytosis initially with WBC 11.7K, now improved to 9.6K. Follow up cultures. - given IV vancomycin, cefepime however with negative wound cultures, will transition to po Bactrim at discharge. - given IV fluconazole, will give po diflucan at discharge. - Consult wound management, states wound looks fungal, recommends adding nystatin powder - pain control with a bowel regimen. - Recommend weight loss. - SIRS resolved, patient's wounds improving with above treatment, stable for discharge - will arrange [facility] RN for wound care Hypokalemia: K+ 3.2 on admission. - KCl given on 07/07, repeat K 3.6, resolved. Morbid Obesity: BMI 50. - business instructor consult completed - weight loss will assist with preventing recurrent infections. HTN: Blood pressure likely exacerbated by pain. - Pain control. - Vasotec as needed. DVT Prophylaxis: Heparin sq Written by Angelique Munson, acting as scribe for Dr. Perez on 07/08/16 at 15:01. The documentation accurately reflects the work performed [id number] by me Dr. Perez on 07/08/16 at 15:01. Pt Condition on Discharge: Stable Discharge Disposition: Disch w/ Home Health Serv Discharge Time: > 30 minutes Discharge Instructions DIET: Follow Instructions for: Heart Healthy Diet Activities you can perform: Regular-No Restrictions Follow up Referrals: PCP Follow-up - 2-3 Days New Medications: Fluconazole (Diflucan) 100 Mg Tab 100 MG PO DAILY Infection #5 Ref 0 TAB Nystatin Topical (Nystop Topical) 100,000 Unit/Gm Powd 1 APPLIC TOPICAL Q12HR Infection #60 Ref 0 GM Sulfamethoxazole-Trimethoprim (Bactrim DS) 800-160 Mg Tab 1 TAB PO BID Infection #28 Ref 0 TAB Continued Medications: Gabapentin (Gabapentin) 100 Mg Cap 200 MG PO TID #60 Ref 0 CAP Lorazepam (Ativan) 1 Mg Tab 1 MG PO Q8H PRN ANXIETY AND/OR AGITATION Ref 0 TAB Oxycodone-Acetaminophen (Percocet) 10-325 mg Tab 1 TAB PO Q4H PRN PAIN #10 Ref 0 TAB (This prescription has been renewed) Angelique Munson PA-C Jul 08, 2016 17:08 Mary Perez MD Jul 09, 2016 17:42
[2016-07-08] MEDS ORDERED: NYSTATIN 100,000 U/GM PWD 15 GM BTL TOPICAL SCH (17:15)
--- NOTE | 2016-07-16 12:46 | PQ ---
Physician Query Response Document PATIENT: NIKI BOBO : 1960 ADMIT DATE: 07/05/2016 10:42 PM DISCH DATE: 07/08/2016 6:38 PM RESPONDING PROVIDER #: [email or web address] QUERY TEXT: Sepsis Query Based on your medical judgement, can you further clarify the folowiin. Sepsis (SIRS due to an infection) 2. Sepsis with Organ Dysfunction 3. A localized Infection only 4. Another condition - please specify 5. Unable to determine - please explain. Depending on your selection above, please indicate one of the below if applicable: - Sepsis was present on Admission - Sepsis developed after admission The patient's Clinical Indicators include: Vitals on admission temp 100.3 101.5 at home HR 90 Lactic acid normal given vanco, zosyn, cefeprime-- -SIRS w infectious disease can not be used-please document from below..............thanks Query created by: Nathaly Huerta on 07/15/2016 3:52 PM RESPONSE TEXT: Patient doesn't meet sepsis or sirs criteria. She had cellulitis and hydradenitis suppurativa. Electronically signed by: Mary Perez MD 07/16/2016 12:42 PM
== END 2016-07-08 18:38 | disposition home or self-care (01) | DRG 603 ==
LOC: NEPC 16:34 → NEDA 22:42 → NEDH 07-06 03:04 → NEPHCDU 07-06 08:11
PROVIDERS: ADMIT Hospitalist; ATTEND Hospitalist
DX: L03.311 Cellulitis of abdominal wall (principal); Z68.43 Body mass index [BMI] 50.0-59.9, adult; I10 Essential (primary) hypertension; E87.6 Hypokalemia; B37.9 Candidiasis, unspecified; F17.200 Nicotine dependence, unspecified, uncomplicated; G50.0 Trigeminal neuralgia; F41.9 Anxiety disorder, unspecified; L73.2 Hidradenitis suppurativa; E66.01 Morbid (severe) obesity due to excess calories; I89.0 Lymphedema, not elsewhere classified; G47.33 Obstructive sleep apnea (adult) (pediatric); Z86.718 Personal history of other venous thrombosis and embolism; Z99.3 Dependence on wheelchair; Z85.850 Personal history of malignant neoplasm of thyroid
CPT/HCPCS: 76937; 80048; 80053; 80202; 83605; 83735; 85025; 87040; 87070; 87102; 87205; 87206; 96365; 96367; J0692; J1170; J1450; J1644; J2543; J3370; J7040; J7050